=== PATIENT | female | born 1965 | race Caucasian/White ===

== ENCOUNTER 2021-11-13 06:01 | Inpatient (IN) | payer BC ==
[~2021-11-13] VITALS: Ht 165.1 cm; Wt 126.5 kg
[2021-11-13] MEDS ORDERED: LISI10TA22 PO (06:17)
[2021-11-13] MEDS ORDERED: LOSA50TA28 PO (06:17)
[2021-11-13] MEDS ORDERED: OMEP-173 PO (06:17)
[2021-11-13] MEDS ORDERED: METO50TA9 PO (06:17)
[2021-11-13] MEDS ORDERED: ERGO500029 PO (06:17)
[2021-11-13] MEDS ORDERED: SERT-141 PO (06:17)
[2021-11-13 07:32] LABS: BASO % 0.2 % (0.0-1.0); EOS % 0.1 % (0.0-3.0); HEMATOCRIT 39.8 % (36.0-47.0); HEMOGLOBIN 13.4 g/dl (12.0-15.5); LYMPH # 0.9 10^3/uL (1.5-5.0); LYMPH % 6.1 % (24.0-44.0); MEAN CORPUSCULAR HEMOGLOBIN 29.5 pg (27.0-33.0); MEAN CORPUSCULAR HGB CONC 33.7 g/dl (32.0-36.5); MEAN CORPUSCULAR VOLUME 87.5 fl (80.0-96.0); MONO # 0.6 10^3/uL (0.0-0.8); MONO % 3.9 % (2.0-8.0); NEUTROPHILS # 12.9 10^3/uL (1.5-8.5); NEUTROPHILS % 89.1 % (36.0-66.0); PLATELET COUNT, AUTOMATED 226 10^3/uL (150-450); RED BLOOD COUNT 4.55 10^6/uL (4.00-5.40); WHITE BLOOD COUNT 14.5 10^3/uL (4.0-10.0)
[2021-11-13] MEDS ORDERED: NS 1,000 ML IV ONE ×2 (07:35→12:05)
[2021-11-13 07:45] LABS: INR 0.99; PROTHROMBIN TIME 13.5 SECONDS (12.7-14.5)
[2021-11-13 07:46] LABS: PARTIAL THROMBOPLASTIN TIME 25.8 SECONDS (25.9-37.0)
[2021-11-13 08:04] LABS: ALBUMIN 4.1 GM/DL (3.2-5.2); ALT/SGPT 222 U/L (12-78); BILIRUBIN,DIRECT 1.2 MG/DL (0.0-0.2); BILIRUBIN,TOTAL 1.6 MG/DL (0.2-1.0); LIPASE 214 U/L (73-393); TOTAL PROTEIN 7.6 GM/DL (6.4-8.2)
[2021-11-13 08:05] LABS: CK-MB VALUE MASS < 1.0 NG/ML (<3.6); CPK CREATINE PHOSPHOKINASE 58 U/L (26-192); MB/CK RELATIVE INDEX 1.72 (< OR =4)
[2021-11-13 08:22] LABS: HCG, SERUM QUALITATIVE NEGATIVE (NEGATIVE)
[2021-11-13 09:43] LABS: HEMOGLOBIN A1c 7.7 %
[2021-11-13] MEDS ORDERED: ONDANSETRON 4MG/2ML VIAL IV ONE (10:00)
[2021-11-13] MEDS ORDERED: ISOVUE-370 76% 100ML VIAL As Ordered ONE (10:04)
[2021-11-13] MEDS ORDERED: PANTOPRAZOLE 40MG VIAL IV ONE (11:10)
[2021-11-13] MEDS ORDERED: LORazepam 2 MG/ML VIAL IV STA (12:11)
[2021-11-13 12:57] LABS: HEPATITIS B SURFACE ANTIGEN NEGATIVE (NEGATIVE)
[2021-11-13 13:54] LABS: HEPATITIS B CORE ANTIBODY IGM NEGATIVE (NEGATIVE)
[2021-11-13 13:56] LABS: HEPATITIS C VIRUS ABY INDEX 0.2 INDEX (<0.8)
[2021-11-13] MEDS ORDERED: OMEP40CA5 PO (16:00)
[2021-11-13] MEDS ORDERED: ASPI81TA26 PO (16:00)
[2021-11-13] MEDS ORDERED: HOME MED LIST COMPLETE! XX SCH (16:00)
[2021-11-13] MEDS ORDERED: BUSP5TA PO (16:00)
[2021-11-13] MEDS ORDERED: ZOLO100T PO (16:00)
[2021-11-13] MEDS ORDERED: ONDANSETRON 4MG/2ML VIAL IV PRN (16:20)
[2021-11-13] MEDS ORDERED: ACETAMINOPHEN TAB 650MG DOSE (2X325MG) PO PRN (16:20)
[2021-11-13] MEDS ORDERED: busPIRone 5 MG TAB PO PRN (16:55)
[2021-11-13] MEDS ORDERED: DEXTROSE 50% 50 ML SYRINGE IV PRN (17:00)
[2021-11-13] MEDS ORDERED: POTASSIUM CHLORIDE 10MEQ SR TABLET PO ONE (17:00)
[2021-11-13] MEDS ORDERED: GLUCOSE 4GM CHEW TABLET PO PRN (17:00)
[2021-11-13] MEDS ORDERED: GLUCAGON INJ 1MG VIAL SC PRN (17:00)
[2021-11-13 17:39] LABS: BLOOD UREA NITROGEN 17 MG/DL (7-18); CALCIUM LEVEL 8.8 MG/DL (8.5-10.1); CARBON DIOXIDE LEVEL 27 MEQ/L (21-32); CHLORIDE LEVEL 106 MEQ/L (98-107); CREATININE FOR GFR 0.92 MG/DL (0.55-1.30); GLOMERULAR FILTRATION RATE > 60.0 (>51); GLUCOSE, FASTING 198 MG/DL (70-100); POTASSIUM SERUM 3.2 MEQ/L (3.5-5.1); SODIUM LEVEL 139 MEQ/L (136-145)
[2021-11-13] MEDS: NS 1,000 ML IV SCH (19:36)
[2021-11-13] MEDS: PIPERACILLIN/TAZOBACTAM SOD 3.375 GM in D5W MINI-BAG PLUS 50 ML IV SCH (19:37)
[2021-11-13] MEDS: HumaLOG INSULIN (NovoLOG) PER UNIT SC SCH (19:43)
[2021-11-13] MEDS ORDERED: ASPIRIN 81MG ENTERIC TABLET PO SCH (21:00)
[2021-11-13] MEDS ORDERED: HumaLOG INSULIN (NovoLOG) PER UNIT SC SCH (21:00)
[2021-11-13 23:24] VITALS: BP 144/84
[2021-11-14] MEDS: PIPERACILLIN/TAZOBACTAM SOD 3.375 GM in D5W MINI-BAG PLUS 50 ML IV SCH ×3 (00:51→12:48)
[2021-11-14 04:08] VITALS: BP 122/75
[2021-11-14] MEDS ORDERED: METOPROLOL SUCC (TopROL XL) 50MG **XL** TAB PO SCH (09:00)
[2021-11-14] MEDS ORDERED: SERTRALINE 100 MG TAB PO SCH (09:00)
[2021-11-14] MEDS ORDERED: ENOXAPARIN 40MG/0.4ML SYRINGE (J1650 PER 10MG) SC SCH (09:00)
[2021-11-14] MEDS ORDERED: PANTOPRAZOLE 40MG VIAL IV SCH (09:00)
[2021-11-14] MEDS ORDERED: LOSARTAN 50MG TABLET PO SCH (09:00)
[2021-11-14 09:16] LABS: BASO % 0.5 % (0.0-1.0); EOS # 0.2 10^3/uL (0.0-0.5); EOS % 2.6 % (0.0-3.0); HEMATOCRIT 36.6 % (36.0-47.0); HEMOGLOBIN 11.9 g/dl (12.0-15.5); LYMPH # 1.2 10^3/uL (1.5-5.0); LYMPH % 20.2 % (24.0-44.0); MEAN CORPUSCULAR HEMOGLOBIN 29.5 pg (27.0-33.0); MEAN CORPUSCULAR HGB CONC 32.5 g/dl (32.0-36.5); MEAN CORPUSCULAR VOLUME 90.6 fl (80.0-96.0); MONO # 0.3 10^3/uL (0.0-0.8); MONO % 5.6 % (2.0-8.0); NEUTROPHILS % 70.2 % (36.0-66.0); PLATELET COUNT, AUTOMATED 193 10^3/uL (150-450); RED BLOOD COUNT 4.04 10^6/uL (4.00-5.40); WHITE BLOOD COUNT 5.7 10^3/uL (4.0-10.0)
[2021-11-14 09:38] LABS: ALBUMIN 3.2 GM/DL (3.2-5.2); ALT/SGPT 186 U/L (12-78); BLOOD UREA NITROGEN 16 MG/DL (7-18); CARBON DIOXIDE LEVEL 26 MEQ/L (21-32); CHLORIDE LEVEL 108 MEQ/L (98-107); CREATININE FOR GFR 0.95 MG/DL (0.55-1.30); GLOMERULAR FILTRATION RATE > 60.0 (>51); GLUCOSE, FASTING 206 MG/DL (70-100); POTASSIUM SERUM 3.3 MEQ/L (3.5-5.1); SODIUM LEVEL 142 MEQ/L (136-145); TOTAL PROTEIN 7.1 GM/DL (6.4-8.2)
[2021-11-14 09:41] VITALS: BP 129/74
[2021-11-14 09:43] VITALS: BP 129/74
[2021-11-14] MEDS: HumaLOG INSULIN (NovoLOG) PER UNIT SC SCH ×2 (09:44→12:48)
[2021-11-14] MEDS: NS 1,000 ML IV SCH (09:45)
[2021-11-14] MEDS ORDERED: POTASSIUM CHLORIDE 10MEQ SR TABLET PO ONE (09:50)
[2021-11-14 12:10] VITALS: BP 126/70
[2021-11-14] MEDS ORDERED: CIPR-249 PO (13:47)
[2021-11-14] MEDS ORDERED: METR-265 PO (13:47)
[2021-11-14] MEDS ORDERED: GLUC1TES2 XX (14:53)
[2021-11-14] MEDS ORDERED: METF10004 PO (14:53)
[2021-11-14] MEDS ORDERED: BLOOKIT21 XX (14:53)
[2021-11-14] MEDS ORDERED: LANC30MI XX (14:53)
[2021-11-14] MEDS ORDERED: ALCOPAD25 TOP (14:53)
[2021-11-14] MEDS ORDERED: metroNIDAZOLE (FLAGYL) 500MG TABLET PO SCH (16:00)
[2021-11-14] MEDS ORDERED: CIPROFLOXACIN 500MG TABLET PO SCH (18:00)
== END 2021-11-14 16:26 | disposition home or self-care (01) ==
LOC: M ED 06:01 → M ED INP 16:20 → ENRESERV 22:01 → M PCU 23:14
PROVIDERS: ADMIT Internal Medicine; ATTEND Internal Medicine
DX: K80.50 Calculus of bile duct without cholangitis or cholecystitis without obstruction (principal); E87.2 Acidosis; I10 Essential (primary) hypertension; F41.9 Anxiety disorder, unspecified; K21.9 Gastro-esophageal reflux disease without esophagitis; E87.6 Hypokalemia; E11.9 Type 2 diabetes mellitus without complications; E55.9 Vitamin D deficiency, unspecified; Z79.82 Long term (current) use of aspirin; Z79.899 Other long term (current) drug therapy; Z88.2 Allergy status to sulfonamides; Z88.5 Allergy status to narcotic agent; Z88.8 Allergy status to other drugs, medicaments and biological substances